=== PATIENT | female | born 1950 | race African-American/Black ===

== ENCOUNTER 2018-12-09 09:55 | Emergency (ER) | payer OTHER ==
[~2018-12-09] VITALS: Ht 160 cm; Wt 85.7 kg
[2018-12-09] MEDS ORDERED: AVALIDE 300-121 EACH (10:22)
[2018-12-09] MEDS ORDERED: NORVASC5 MG (10:22)
[2018-12-09] MEDS ORDERED: LIPITOR20 MG (10:22)
[2018-12-09] MEDS ORDERED: IRON236 MG (10:23)
[2018-12-09] MEDS ORDERED: TOPROL XL25 M1 (10:23)
[2018-12-09] MEDS ORDERED: TRICOR145 MG (10:23)
[2018-12-09] MEDS ORDERED: VITAMIN B-122500 MCG (10:24)
[2018-12-09] MEDS ORDERED: FOLGARD TABLET1 EACH (10:24)
[2018-12-09] MEDS ORDERED: METFORMIN500 MG/5 M (10:24)
== END 2018-12-09 12:31 | disposition home or self-care (01) ==
LOC: ER 09:55
DX: M79.644 Pain in right finger(s) (principal); S61.24 Puncture wound with foreign body of finger without damage to nail; W45.8XXS Other foreign body or object entering through skin, sequela

== ENCOUNTER 2020-11-11 15:10 | Emergency (ER) | payer OTHER ==
[~2020-11-11] VITALS: Ht 160 cm; Wt 83.9 kg
[~2020-11-11 15:10] MED LIST: AVALIDE 300-121 EACH; FOLGARD TABLET1 EACH; IRON236 MG; LIPITOR20 MG; METFORMIN500 MG/5 M; NORVASC5 MG; TOPROL XL25 M1; TRICOR145 MG; VITAMIN B-122500 MCG
== END 2020-11-11 17:36 | disposition home or self-care (01) ==
LOC: ER 15:10
DX: H60.8X2 Other otitis externa, left ear (principal); H92.01 Otalgia, right ear

== ENCOUNTER 2022-10-27 10:51 | Emergency (ER) | payer OTHER ==
[~2022-10-27] VITALS: Ht 160 cm; Wt 85.3 kg
== END 2022-10-27 11:35 | disposition home or self-care (01) ==
LOC: ER 10:51
DX: K08.89 Other specified disorders of teeth and supporting structures (principal)

== ENCOUNTER 2022-11-07 17:40 | Emergency (ER) | payer OTHER ==
[~2022-11-07] VITALS: Ht 160 cm; Wt 86.2 kg
[2022-11-07] MEDS ORDERED: NITROFURANTOIN100 MG PO (19:42)
[2022-11-07] MEDS ORDERED: TUSSIN100 MG/51 PO (19:42)
[2022-11-07] MEDS ORDERED: OSEL75CA PO (19:42)
== END 2022-11-07 20:17 | disposition home or self-care (01) ==
LOC: ER 17:40
DX: U07.1 COVID-19 (principal); N39.0 Urinary tract infection, site not specified; R05.9 Cough, unspecified; Z91.013 Allergy to seafood; Z88.6 Allergy status to analgesic agent; Z88.2 Allergy status to sulfonamides; J10.1 Influenza due to other identified influenza virus with other respiratory manifestations

== ENCOUNTER 2023-08-14 15:30 | Emergency (ER) | payer OTHER ==
[~2023-08-14] VITALS: Ht 160 cm; Wt 72.6 kg
[~2023-08-14 15:30] MED LIST changes: +NITROFURANTOIN100 MG PO; +OSEL75CA PO; +TUSSIN100 MG/51 PO
[2023-08-14 16:44] LABS: URINE APPEARANCE Clear; URINE BILIRRUBIN Negative (NEGATIVE); URINE BLOOD Negative; URINE COLOR Yellow; URINE GLUCOSE Negative (NEGATIVE); URINE LEUKOCYTE Negative; URINE NITRATE Negative; URINE PROTEIN Negative (NEGATIVE)
[2023-08-14 16:47] LABS: URINE BACTERIA 380.4 uL (0.0-1933); URINE EPITHELIAL CELLS 19.7 uL (0.0-38.8); URINE WBC 6.7 uL (0.0-23.2)
[2023-08-14 16:50] LABS: URINE RBC 1.1 uL (0.0-20.8)
== END 2023-08-14 17:17 | disposition home or self-care (01) ==
LOC: ER 15:31
PROVIDERS: Emergency Medicine
DX: R39.9 Unspecified symptoms and signs involving the genitourinary system (principal); Z91.013 Allergy to seafood; Z88.6 Allergy status to analgesic agent; Z88.8 Allergy status to other drugs, medicaments and biological substances; E11.9 Type 2 diabetes mellitus without complications; I10 Essential (primary) hypertension; J45.909 Unspecified asthma, uncomplicated

== ENCOUNTER 2024-09-05 13:57 | Emergency (ER) | payer OTHER ==
[~2024-09-05] VITALS: Ht 167.6 cm; Wt 72.6 kg
[2024-09-05] MEDS ORDERED: CEFTRIAXONE SODIUM 1,000 MG VIAL IM STA (16:40)
[2024-09-05] MEDS ORDERED: CEFTRIAXONE SODIUM 1,000 MG VIAL ONE (16:46)
[2024-09-05] MEDS ORDERED: LIDOCAINE HCL 1% 10ML VIAL ONE (16:46)
== END 2024-09-05 19:01 | disposition home or self-care (01) ==
LOC: ER 13:58
DX: J06.9 Acute upper respiratory infection, unspecified (principal); R05.9 Cough, unspecified; Z88.5 Allergy status to narcotic agent; Z91.013 Allergy to seafood
CPT/HCPCS: 96372; 99282; J0696

== ENCOUNTER 2025-05-13 09:12 | Emergency (ER) | payer OTHER ==
[~2025-05-13] VITALS: Ht 160 cm; Wt 88.5 kg
[2025-05-13] MEDS ORDERED: ACETAMINOPHEN 500 MG GEL..CAP PO ONE (10:00)
[2025-05-13 10:30] LABS: BASO % 0.4 % (0.1-1.2); EOS # 0.18 (0.04-0.54); EOS % 3.2 % (0.7-7.0); LYMPH # 0.51 (1.18-3.74); LYMPH % 9.1 % (19.3-53.1); MEAN PLATELET VOLUME 9.90 fl (9.4-12.4); MONO # 0.48 (0.24-0.82); MONO % 8.6 % (4.7-12.5); NEUT # 4.40 (1.56-6.13); NEUT % 78.3 % (34.0-71.1); RED CELL DISTRIBUTION WIDTH 15.7 % (11.6-14.4)
[2025-05-13 11:11] LABS: COVID-19 AG NEGATIVE (NEGATIVE)
[2025-05-13] MEDS ORDERED: GILPHEX TR 3901 EACH PO (11:27)
[2025-05-16] MEDS ORDERED: TRAYENTA (17:08)
[2025-05-16] MEDS ORDERED: IPRAT-ALBUT 0.5-3 ML IH (23:02)
[2025-05-16] MEDS ORDERED: SINGULAIR10 MG PO (23:02)
[2025-05-16] MEDS ORDERED: PEPCID AC20 MG PO (23:02)
== END 2025-05-13 12:20 | disposition home or self-care (01) ==
LOC: ER 09:13
PROVIDERS: General Practice
DX: R05.8 Other specified cough (principal); Z88.1 Allergy status to other antibiotic agents; Z91.013 Allergy to seafood; Z88.6 Allergy status to analgesic agent; J45.909 Unspecified asthma, uncomplicated; I10 Essential (primary) hypertension; Z20.822 Contact with and (suspected) exposure to COVID-19; R50.9 Fever, unspecified

== ENCOUNTER → 2025-05-16 | Emergency (ER) | payer OTHER ==
[~2025-05-16] VITALS: Ht 160 cm; Wt 88.9 kg
[~2025-05-16] MED LIST changes: +CEFTRIAXONE SODIUM 1,000 MG VIAL IM ONE; +GILPHEX TR 3901 EACH PO; +IPRAT-ALBUT 0.5-3 ML IH; +IPRATROPIUM BROMIDE 0.5 MG/2.5 ML AMPUL.NEB IH ONE; +METHYLPREDNISOLONE SOD SUCC 40 MG VIAL IM ONE; +PEPCID AC20 MG PO; +SINGULAIR10 MG PO; +TRAYENTA
[2025-05-16 17:02] VITALS: BP 131/72; O2SAT 96
[2025-05-16 19:35] LABS: URINE APPEARANCE Clear; URINE BILIRRUBIN Negative (NEGATIVE); URINE BLOOD Negative; URINE COLOR Yellow; URINE GLUCOSE Negative (NEGATIVE); URINE KETONE Negative (NEGATIVE); URINE LEUKOCYTE Negative; URINE NITRATE Negative; URINE PROTEIN Negative (NEGATIVE); URINE UROBILINOGEN 0.2 E.U./dl
[2025-05-16 19:36] LABS: URINE BACTERIA 523.9 uL (0.0-1933); URINE EPITHELIAL CELLS 36.3 uL (0.0-38.8); URINE RBC 2.5 uL (0.0-20.8); URINE WBC 6.5 uL (0.0-23.2)
[2025-05-16 19:38] LABS: URINE CAST 0.70 uL (0.0-1.40)
[2025-05-16 21:38] LABS: BASO % 0.8 % (0.1-1.2); EOS # 0.13 (0.04-0.54); EOS % 5.0 % (0.7-7.0); LYMPH # 1.10 (1.18-3.74); LYMPH % 42.1 % (19.3-53.1); MEAN PLATELET VOLUME 10.20 fl (9.4-12.4); MONO # 0.34 (0.24-0.82); NEUT # 1.01 (1.56-6.13); NEUT % 38.7 % (34.0-71.1); RED CELL DISTRIBUTION WIDTH 15.4 % (11.6-14.4)
[2025-05-16 21:48] LABS: MONO % 13.0 % (4.7-12.5)
[2025-05-16 22:05] LABS: ALT/SGPT 29.0 U/L (12-78); AST/SGOT 24.0 U/L (15-37); BILIRUBIN TOTAL 0.33 mg/dL (0.3-1.2); BUN CREA RATIO 14.0 (7.0-25.0); CREATININE SERUM 1.23 mg/dL (0.55-1.02); GFR 42.8; GLOBULINA 4.3 G/DL (2.4-3.5); GLUCOSE FASTING 151.0 mg/dL (65-100); OSMOLALITY SERUM 288.0 MOSM/KG (275-295)
[2025-05-16 22:41] LABS: COVID-19 AG NEGATIVE (NEGATIVE)
== END | disposition home or self-care (01) ==
LOC: ER 16:00
PROVIDERS: General Practice
DX: J45.998 Other asthma (principal); Z20.822 Contact with and (suspected) exposure to COVID-19; Z88.8 Allergy status to other drugs, medicaments and biological substances; Z91.013 Allergy to seafood
CPT/HCPCS: 36415; 71046; 94640; 96372; 99283; J0696